=== PATIENT | female | born 1955 | race Caucasian/White ===

== ENCOUNTER 2022-11-02 07:00 | Emergency (ER) | payer MEDICARE, BC, SELFPAY ==
[2022-11-02] VITALS (13 sets, daily range): BP systolic 86–119; BP diastolic 44–74; PULSE 41–47; RESP 18; TEMP 35.8; O2SAT 95–99; BMI 24.7
--- NOTE | 2022-11-02 07:24 | ED_ITS ---
HPI - General Adult General Time Seen by Provider: 07:24 <Dale Ly MD - Last Filed: 11/02/22 07:46> Date Seen: 11/02/22 <Dale Ly MD - Last Filed: 11/02/22 07:46> Chief complaint: Back Injury/Pain <Dale Ly MD - Last Filed: 11/02/22 07:46> Stated complaint: Upper shoulder back pain/nausea <Dale Ly MD - Last Filed: 11/02/22 07:46> Time Seen by Provider: 11/02/22 07:13 <Dale Ly MD - Last Filed: 11/02/22 07:46> Source: patient, family and RN notes reviewed <Dale Ly MD - Last Filed: 11/02/22 07:46> Mode of arrival: ambulatory <Dale Ly MD - Last Filed: 11/02/22 07:46> Limitations: no limitations <Dale Ly MD - Last Filed: 11/02/22 07:46> History of Present Illness HPI narrative: 59-year-old female who comes in today with left back pain, lightheadedness, and nausea. This occurred about 6:00 a.m. and woke her up. She had pain in the left shoulder blade area with no radiation into the chest. This is accompanied by nausea but no vomiting. She had some shortness of breath and lightheadedness with this. She also notes that 3 days ago she had an episode of left arm pain the last for several minutes while driving and then went away. She denies abdominal pain, fever, cough. She is noted to be a little bradycardic says her heart rate is usually in the 40s. Review of recent echocardiogram shows heart rate in the 50s at that time <Dale Ly MD - Last Filed: 11/02/22 07:46> Related Data Home medications: Home Medications Medication Instructions Recorded Confirmed atorvastatin 20 mg tablet 20 mg PO HS 11/02/22 11/02/22 sertraline 25 mg tablet 12.5 mg PO DAILY 11/02/22 11/02/22 <Dale Ly MD - Last Filed: 11/02/22 07:46> Allergies/adverse reactions: Allergies Allergy/AdvReac Type Severity Reaction Status Date / Time Sulfa (Sulfonamide Allergy Severe Anaphylaxis Verified 11/02/22 07:11 Antibiotics) <Dale Ly MD - Last Filed: 11/02/22 07:46> [facility] Social History: Social History Smoking Status: Never smoker Do you use any of these nicotine containing products: None Second hand tobacco smoke exposure: No How often do you have a drink containing alcohol: monthly or less How often do you have six or more drinks on one occasion: Never AUDIT-C Alcohol total score: 1 Non-prescribed substance use: denies use service: No <Dale Ly MD - Last Filed: 11/02/22 07:46> Exam Narrative: Exam Narrative: General: Well-developed and well-nourished, no acute distress Head: Atraumatic and normocephalic Eyes: Pupils are equal reactive, extraocular motions intact, conjunctiva clear ENT: External nose and ears are normal, posterior pharynx without erythema or exudate Neck: No midline cervical tenderness, full spontaneous range of motion the neck, trachea midline, no adenopathy Heart: Bradycardic rate and rhythm no murmurs or thrills Lungs: Clear to auscultation bilaterally without wheezes or crackles Abdomen: Soft, nontender, nondistended with active bowel sounds Musculoskeletal: No tenderness, deformity, or edema Neurologic: Awake, alert, and oriented x3, no gross focal neurologic deficits, cranial nerves intact as tested Psych: Mood and affect are appropriate Skin: No rashes <Dale Ly MD - Last Filed: 11/02/22 07:46> Const: Vital Signs, click to edit/add: Vital Signs - 24 hr 11/02/22 07:05 11/02/22 07:11 11/02/22 07:12 Temperature 96.5 F L Pulse Rate 45 L 47 L Pulse Rate [Right] 46 L Respiratory Rate 18 Blood Pressure 118/66 Blood Pressure [Ri ght Upper Arm] 118/66 Pulse Oximetry 99 99 99 Oxygen Delivery Me thod Room Air 11/02/22 07:30 11/02/22 07:31 11/02/22 07:32 Temperature Pulse Rate 42 L 44 L 41 L Pulse Rate [Right] Respiratory Rate Blood Pressure 116/68 Blood Pressure [Ri ght Upper Arm] Pulse Oximetry 99 98 98 Oxygen Delivery Me thod 11/02/22 08:00 11/02/22 08:02 11/02/22 08:30 Temperature Pulse Rate 43 L 43 L 44 L Pulse Rate [Right] Respiratory Rate Blood Pressure 119/72 Blood Pressure [Ri ght Upper Arm] Pulse Oximetry 99 98 99 Oxygen Delivery Me thod 11/02/22 08:33 11/02/22 08:39 11/02/22 09:00 Temperature Pulse Rate 45 L 42 L 42 L Pulse Rate [Right] Respiratory Rate Blood Pressure 86/44 L 119/74 Blood Pressure [Ri ght Upper Arm] Pulse Oximetry 99 98 97 Oxygen Delivery Me thod 11/02/22 09:02 Temperature Pulse Rate 41 L Pulse Rate [Right] Respiratory Rate Blood Pressure 106/69 Blood Pressure [Ri ght Upper Arm] Pulse Oximetry 95 Oxygen Delivery Me thod <Dale Ly MD - Last Filed: 11/02/22 07:46> Vital Signs, click to edit/add: Vital Signs - 24 hr 11/02/22 07:05 11/02/22 07:11 11/02/22 07:12 Temperature 96.5 F L Pulse Rate 45 L 47 L Pulse Rate [Right] 46 L Respiratory Rate 18 Blood Pressure 118/66 Blood Pressure [Ri ght Upper Arm] 118/66 Pulse Oximetry 99 99 99 Oxygen Delivery Me thod Room Air 11/02/22 07:30 11/02/22 07:31 11/02/22 07:32 Temperature Pulse Rate 42 L 44 L 41 L Pulse Rate [Right] Respiratory Rate Blood Pressure 116/68 Blood Pressure [Ri ght Upper Arm] Pulse Oximetry 99 98 98 Oxygen Delivery Me thod 11/02/22 08:00 11/02/22 08:02 11/02/22 08:30 Temperature Pulse Rate 43 L 43 L 44 L Pulse Rate [Right] Respiratory Rate Blood Pressure 119/72 Blood Pressure [Ri ght Upper Arm] Pulse Oximetry 99 98 99 Oxygen Delivery Me thod 11/02/22 08:33 11/02/22 08:39 11/02/22 09:00 Temperature Pulse Rate 45 L 42 L 42 L Pulse Rate [Right] Respiratory Rate Blood Pressure 86/44 L 119/74 Blood Pressure [Ri ght Upper Arm] Pulse Oximetry 99 98 97 Oxygen Delivery Me thod 11/02/22 09:02 Temperature Pulse Rate 41 L Pulse Rate [Right] Respiratory Rate Blood Pressure 106/69 Blood Pressure [Ri ght Upper Arm] Pulse Oximetry 95 Oxygen Delivery Me thod <Smooth Alcocer MD - Last Filed: 11/02/22 09:54> Course Course Hospital Course: Patient seen and examined, prior records are reviewed. Patient presents today with atraumatic left shoulder pain, nausea, lightheadedness. On exam here, patient noted to be bradycardic but no other findings. Cannot reproduce symptoms and patient says pain is resolved. Concern for possible atypical acute coronary syndrome especially in setting of atraumatic scapula pain. Patient tells me she has been treated for this in the past, number of years ago and did physical therapy for this. <Dale Ly MD - Last Filed: 11/02/22 07:46> Reevaluation(s) Reevaluation #1: I reviewed with the patient that the initial troponin, D-dimer, EKG, chest x-ray, and blood tests were all within normal limits, she is feeling much better now. And has absolutely no pain, nausea vomiting. I do believe this 2nd set of troponin EKG would be important, she is low risk and I both feel that we could probably discharge her after this. Both her and her were comfortable with this plan. <Smooth Alcocer MD - Last Filed: 11/02/22 09:54> Time: 08:52 <Smooth Alcocer MD - Last Filed: 11/02/22 09:54> Reevaluation #2: I discussed with her 2nd troponin is 0 or his 2nd EKG is normal. I think that this is more likely musculoskeletal, she also does have mild bradycardia by EKG, she is otherwise asymptomatic in of she does become symptomatic I would encourage her to follow up primary care to check this. <Smooth Alcocer MD - Last Filed: 11/02/22 09:54> Time: 09:51 <Smooth Alcocer MD - Last Filed: 11/02/22 09:54> Vital Signs Vital signs: Initial Vital Signs Temperature 96.5 F L 11/02/22 07:05 Temperature Source Temporal Artery Scan 11/02/22 07:05 Pulse Rate 46 L 11/02/22 07:05 Respiratory Rate 18 03/07/23 07:05 Blood Pressure 118/66 11/02/22 07:05 Blood Pressure Mean 83 11/02/22 07:05 Blood Pressure Position Sitting 11/02/22 07:05 Pulse Oximetry 99 11/02/22 07:05 Oxygen Delivery Method 11/02/22 07:05 Vital Signs Temperature 96.5 F L 11/02/22 07:05 Pulse Rate 46 L 11/02/22 07:05 Respiratory Rate 18 11/02/22 07:05 Blood Pressure 118/66 11/02/22 07:05 Pulse Oximetry 99 11/02/22 07:05 Oxygen Delivery Method 11/02/22 07:05 Temperature 96.5 F L 11/02/22 07:05 Pulse Rate 41 L 11/02/22 09:02 Respiratory Rate 18 11/02/22 07:05 Blood Pressure 106/69 11/02/22 09:02 Pulse Oximetry 95 11/02/22 09:02 Oxygen Delivery Method 11/02/22 07:05 <Dale Ly MD - Last Filed: 11/02/22 07:46> Initial Vital Signs Temperature 96.5 F L 11/02/22 07:05 Temperature Source Temporal Artery Scan 11/02/22 07:05 Pulse Rate 46 L 11/02/22 07:05 Respiratory Rate 18 11/02/22 07:05 Blood Pressure 118/66 11/02/22 07:05 Blood Pressure Mean 83 11/02/22 07:05 Blood Pressure Position Sitting 11/02/22 07:05 Pulse Oximetry 99 11/02/22 07:05 Oxygen Delivery Method 11/02/22 07:05 Vital Signs Temperature 96.5 F L 11/02/22 07:05 Pulse Rate 46 L 11/02/22 07:05 Respiratory Rate 18 11/02/22 07:05 Blood Pressure 118/66 11/02/22 07:05 Pulse Oximetry 99 11/02/22 07:05 Oxygen Delivery Method 11/02/22 07:05 Temperature 96.5 F L 11/02/22 07:05 Pulse Rate 41 L 11/02/22 09:02 Respiratory Rate 18 11/02/22 07:05 Blood Pressure 106/69 11/02/22 09:02 Pulse Oximetry 95 11/02/22 09:02 Oxygen Delivery Method 11/02/22 07:05 <Smooth Alcocer MD - Last Filed: 11/02/22 09:54> Medical Decision Making MDM Narrative Medical decision making narrative: During the evaluation of this patient I considered multiple differential diagnosis is. The life-threatening differential diagnosis include coronary disease/CO, pulmonary embolism, pneumothorax, pneumonia, and aortic dissection. Other differential diagnosis included but were not limited to pericarditis, myocarditis, chest wall pain, GERD, esophageal rupture, rib fracture contusion, pleurisy, as well as other etiologies. Life-threatening differential diagnosis considered include: Cauda equina an epidural abscess, other differential diagnosis considered includes sprain, contusion, nerve root entrapment, radiculopathy, muscle spasm, urolithiasis, lumbar fracture, pyelonephritis, appendicitis, biliary colic, as well as other etiologies. The patient denies saddle anesthesia bowel or bladder incontinence or lower extremity weakness, recent weight loss, or history of malignancy. <Smooth Alcocer MD - Last Filed: 11/02/22 09:54> Medical Records Medical records reviewed: Yes I reviewed the patient's medical records <Smooth Alcocer MD - Last Filed: 11/02/22 09:54> Lab Data Lab results reviewed: Yes I reviewed the patient's lab results <Smooth Alcocer MD - Last Filed: 11/02/22 09:54> Labs: Lab Results 11/02/22 11/02/22 11/02/22 Range/Units 07:50 07:50 07:50 WBC 5.33 (4.50-11.00) K/uL RBC 4.27 (4.00-5.20) m/uL Hgb 13.0 (12.0-16.0) gm/dL Hct 41.0 (33.0-51.0) % MCV 96 (80-100) fL MCH 30 (26-34) pg MCHC 32 (32-36) gm/dL RDW Coeff of Jaylene 11.8 (11.5-15.5) % Plt Count 162 (140-440) K/uL Neut % (Auto) 64.8 (42.0-72.0) % Lymph % (Auto) 26.3 (20-44) % [place] % (Auto) 6.0 (0.0-11.0) % Eos % (Auto) 2.3 (0.0-7.0) % Baso % (Auto) 0.4 (0.0-3.0) % Neut # (Auto) 3.46 (1.7-7.0) K/uL Lymph # (Auto) 1.40 (0.90-2.90) K/uL [place] # (Auto) 0.30 (0.00-0.90) K/UL Eos # (Auto) 0.12 (0.00-0.50) K/uL Baso # (Auto) 0.02 (0.00-0.30) K/uL D-Dimer Quant (PE/DVT) (0.00-0.50) ug/ml Sodium 140 (135-149) mmol/L Potassium 4.4 (3.6-5.1) mmol/L Chloride 107 (96-114) mmol/L Carbon Dioxide 33 H (20-32) mmol/L BUN 17 (7-30) mg/dL Creatinine 0.7 (0.5-1.5) mg/dL Estimated Creat Clear 46.50 Estimated GFR 94 ml/min Glucose 99 (60-115) mg/dL Calcium 9.2 (8.4-10.6) mg/dL Total Bilirubin 0.7 (0.1-1.5) mg/dL Direct Bilirubin 0.1 (0.0-0.5) mg/dL AST 21 (12-35) U/L ALT 18 (4-35) U/L Alkaline Phosphatase 75 (40-150) U/L Total Protein 6.9 (6.0-8.3) g/dL Albumin 4.3 (3.3-5.0) g/dL Lipase 44 (23-300) U/L SARS-CoV-2 (PCR) (Negative) Influenza Type A (PCR) (Negative) Influenza Type B (PCR) (Negative) RSV (PCR) (Negative) POC Troponin I 0.00 L (0.01-0.04) ng/ml 11/02/22 11/02/22 11/02/22 Range/Units 07:50 07:50 09:30 WBC (4.50-11.00) K/uL RBC (4.00-5.20) m/uL Hgb (12.0-16.0) gm/dL Hct (33.0-51.0) % MCV (80-100) fL MCH (26-34) pg MCHC (32-36) gm/dL RDW Coeff of Jaylene (11.5-15.5) % Plt Count (140-440) K/uL Neut % (Auto) (42.0-72.0) % Lymph % (Auto) (20-44) % [place] % (Auto) (0.0-11.0) % Eos % (Auto) (0.0-7.0) % Baso % (Auto) (0.0-3.0) % Neut # (Auto) (1.7-7.0) K/uL Lymph # (Auto) (0.90-2.90) K/uL [place] # (Auto) (0.00-0.90) K/UL Eos # (Auto) (0.00-0.50) K/uL Baso # (Auto) (0.00-0.30) K/uL D-Dimer Quant (PE/DVT) < 0.27 (0.00-0.50) ug/ml Sodium (135-149) mmol/L Potassium (3.6-5.1) mmol/L Chloride (96-114) mmol/L Carbon Dioxide (20-32) mmol/L BUN (7-30) mg/dL Creatinine (0.5-1.5) mg/dL Estimated Creat Clear Estimated GFR ml/min Glucose (60-115) mg/dL Calcium (8.4-10.6) mg/dL Total Bilirubin (0.1-1.5) mg/dL Direct Bilirubin (0.0-0.5) mg/dL AST (12-35) U/L ALT (4-35) U/L Alkaline Phosphatase (40-150) U/L Total Protein (6.0-8.3) g/dL Albumin (3.3-5.0) g/dL Lipase (23-300) U/L SARS-CoV-2 (PCR) Negative SARS-CoV-2 (Negative) Influenza Type A (PCR) Negative PCR FLU A (Negative) Influenza Type B (PCR) Negative PCR FLU B (Negative) RSV (PCR) Negative PCR RSV (Negative) POC Troponin I 0.00 L (0.01-0.04) ng/ml <Dale Ly MD - Last Filed: 11/02/22 07:46> Lab Results 11/02/22 11/02/22 11/02/22 Range/Units 07:50 07:50 07:50 WBC 5.33 (4.50-11.00) K/uL RBC 4.27 (4.00-5.20) m/uL Hgb 13.0 (12.0-16.0) gm/dL Hct 41.0 (33.0-51.0) % MCV 96 (80-100) fL MCH 30 (26-34) pg MCHC 32 (32-36) gm/dL RDW Coeff of Jaylene 11.8 (11.5-15.5) % Plt Count 162 (140-440) K/uL Neut % (Auto) 64.8 (42.0-72.0) % Lymph % (Auto) 26.3 (20-44) % [place] % (Auto) 6.0 (0.0-11.0) % Eos % (Auto) 2.3 (0.0-7.0) % Baso % (Auto) 0.4 (0.0-3.0) % Neut # (Auto) 3.46 (1.7-7.0) K/uL Lymph # (Auto) 1.40 (0.90-2.90) K/uL [place] # (Auto) 0.30 (0.00-0.90) K/UL Eos # (Auto) 0.12 (0.00-0.50) K/uL Baso # (Auto) 0.02 (0.00-0.30) K/uL D-Dimer Quant (PE/DVT) (0.00-0.50) ug/ml Sodium 140 (135-149) mmol/L Potassium 4.4 (3.6-5.1) mmol/L Chloride 107 (96-114) mmol/L Carbon Dioxide 33 H (20-32) mmol/L BUN 17 (7-30) mg/dL Creatinine 0.7 (0.5-1.5) mg/dL Estimated Creat Clear 46.50 Estimated GFR 94 ml/min Glucose 99 (60-115) mg/dL Calcium 9.2 (8.4-10.6) mg/dL Total Bilirubin 0.7 (0.1-1.5) mg/dL Direct Bilirubin 0.1 (0.0-0.5) mg/dL AST 21 (12-35) U/L ALT 18 (4-35) U/L Alkaline Phosphatase 75 (40-150) U/L Total Protein 6.9 (6.0-8.3) g/dL Albumin 4.3 (3.3-5.0) g/dL Lipase 44 (23-300) U/L SARS-CoV-2 (PCR) (Negative) Influenza Type A (PCR) (Negative) Influenza Type B (PCR) (Negative) RSV (PCR) (Negative) POC Troponin I 0.00 L (0.01-0.04) ng/ml 11/02/22 11/02/22 11/02/22 Range/Units 07:50 07:50 09:30 WBC (4.50-11.00) K/uL RBC (4.00-5.20) m/uL Hgb (12.0-16.0) gm/dL Hct (33.0-51.0) % MCV (80-100) fL MCH (26-34) pg MCHC (32-36) gm/dL RDW Coeff of Jaylene (11.5-15.5) % Plt Count (140-440) K/uL Neut % (Auto) (42.0-72.0) % Lymph % (Auto) (20-44) % [place] % (Auto) (0.0-11.0) % Eos % (Auto) (0.0-7.0) % Baso % (Auto) (0.0-3.0) % Neut # (Auto) (1.7-7.0) K/uL Lymph # (Auto) (0.90-2.90) K/uL [place] # (Auto) (0.00-0.90) K/UL Eos # (Auto) (0.00-0.50) K/uL Baso # (Auto) (0.00-0.30) K/uL D-Dimer Quant (PE/DVT) < 0.27 (0.00-0.50) ug/ml Sodium (135-149) mmol/L Potassium (3.6-5.1) mmol/L Chloride (96-114) mmol/L Carbon Dioxide (20-32) mmol/L BUN (7-30) mg/dL Creatinine (0.5-1.5) mg/dL Estimated Creat Clear Estimated GFR ml/min Glucose (60-115) mg/dL Calcium (8.4-10.6) mg/dL Total Bilirubin (0.1-1.5) mg/dL Direct Bilirubin (0.0-0.5) mg/dL AST (12-35) U/L ALT (4-35) U/L Alkaline Phosphatase (40-150) U/L Total Protein (6.0-8.3) g/dL Albumin (3.3-5.0) g/dL Lipase (23-300) U/L SARS-CoV-2 (PCR) Negative SARS-CoV-2 (Negative) Influenza Type A (PCR) Negative PCR FLU A (Negative) Influenza Type B (PCR) Negative PCR FLU B (Negative) RSV (PCR) Negative PCR RSV (Negative) POC Troponin I 0.00 L (0.01-0.04) ng/ml <Smooth Alcocer MD - Last Filed: 11/02/22 09:54> Imaging Data Chest x-ray: Attestation: I have reviewed the pertinent imaging results. <Smooth Alcocer MD - Last Filed: 11/02/22 09:54> My impression: Chest x-ray showed no acute findings. <Smooth Alcocer MD - Last Filed: 11/02/22 09:54> Radiologist's impression: Patient: LOPEZ SHARMA Facility:?[facility] Patient ID:?[id number] Site Patient ID:?[id number]. Site :?[id number] Study:?XRay Chest 2 view-11/02/2022 7:59:54 AM Ordering Physician:?Aliyah Hunter Final Report: INDICATION: Left shoulder pain. TECHNIQUE: Chest 2 views. COMPARISON: None. FINDINGS: No focal consolidation, pleural effusion, or pneumothorax. Mild cardiomegaly. Normal pulmonary vascularity. Degenerative changes of the spine. IMPRESSION: 1. No acute cardiopulmonary findings. 2. Mild cardiomegaly. Dictated by Shannon Irving MD @ 11/02/2022 8:35:05 AM (Electronic Signature) <Smooth Alcocer MD - Last Filed: 11/02/22 09:54> ECG Data Attestation: I personally reviewed and interpreted this ECG as follows: <Dale Ly MD - Last Filed: 11/02/22 07:46> Prior ECG tracings: not available for review <Dale Ly MD - Last Filed: 11/02/22 07:46> Interpretation: Independently interpreted by me demonstrates rate 42, left axis deviation, no acute ST elevations or depressions, normal intervals, QTC 392, ND 164. No prior for comparison. <Dale Ly MD - Last Filed: 11/02/22 07:46> Independently interpreted by me demonstrates rate 42, left axis deviation, no acute ST elevations or depressions, normal intervals, QTC 392, ND 164. No prior for comparison. Second EKG shows mild sinus bradycardia, no acute changes when reviewed from the previous EKG. <Smooth Alcocer MD - Last Filed: 11/02/22 09:54> Discharge Plan Discharge Clinical Impression: Strain of left trapezius muscle, Left-sided thoracic back pain, Bradycardia by electrocardiogram <Dale Ly MD - Last Filed: 11/02/22 07:46> Patient Disposition: Home w/ Parent or Adult <Dale Ly MD - Last Filed: 11/02/22 07:46> Condition: Improved <Dale Ly MD - Last Filed: 11/02/22 07:46> Instructions: Thoracic Pain (ED) <Dale Ly MD - Last Filed: 11/02/22 07:46> Additional Instructions: Home rest use of ice I find that massage actually worsens these conditions as opposed to improving it. Tylenol ibuprofen, follow-up with primary care for PT. The other thing we did talk about is your heart rate is very low, mine is also v lam low in the focal 40s. EKGs were otherwise normal. If you are having problems with feeling lightheaded, I would encourage you to follow-up with primary care. <Dale Ly MD - Last Filed: 11/02/22 07:46> Activity Level: No Restrictions and Activity as Tolerated <Dale Ly MD - Last Filed: 11/02/22 07:46> No Restrictions and Activity as Tolerated <Smooth Alcocer MD - Last Filed: 11/02/22 09:54> Prescriptions: No Action atorvastatin 20 mg tablet 20 mg PO HS Label Comments: TAKE ONE TABLET BY MOUTH AT BEDTIME sertraline 25 mg tablet 12.5 mg PO DAILY Label Comments: Take 1 Tablet (25 mg) by mouth once daily. <Dale Ly MD - Last Filed: 11/02/22 07:46> Follow Up/Referrals: Shaista Bartholomew PA-C [Referring] - <Dale Ly MD - Last Filed: 11/02/22 07:46> Stand Alone Forms: [employer] Info Instructions <Dale Ly MD - Last Filed: 11/02/22 07:46>
--- NOTE | 2022-11-02 07:27 | CRLHL7_ITS ---
For Patients: As a result of the Cures Act, medical imaging exams and procedure reports are released immediately into your electronic medical record. You may view this report before your referring provider. If you have questions, please contact your health care provider. INDICATION: Left shoulder pain. TECHNIQUE: Chest 2 views. COMPARISON: None. FINDINGS: No focal consolidation, pleural effusion, or pneumothorax. Mild cardiomegaly. Normal pulmonary vascularity. Degenerative changes of the spine. IMPRESSION: 1. No acute cardiopulmonary findings. 2. Mild cardiomegaly. Dictated by Shannon Irving MD @ 11/02/2022 8:35:05 AM (Electronically Signed)
[2022-11-02] MEDS: ASPIRIN 81 MG TAB.CHEW 324 MG PO (07:34)
[2022-11-02 07:57] LABS: Basophils Absolute Auto 0.02 K/uL (0.00-0.30); Basophils Percent Auto 0.4 % (0.0-3.0); Eosinophils Absolute Auto 0.12 K/uL (0.00-0.50); Eosinophils Percent Auto 2.3 % (0.0-7.0); Immature Granulocytes Abs Auto 0.01 K/uL (0.00-0.30); Immature Granulocytes Pct Auto 0.2 %; Lymphocytes Percent Auto 26.3 % (20-44); Mean Corpuscular HGB Conc 32 gm/dL (32-36); Mean Corpuscular Hemoglobin 30 pg (26-34); Mean Corpuscular Volume 96 fL (80-100); Neutrophils Absolute Auto 3.46 K/uL (1.7-7.0); Neutrophils Percent Auto 64.8 % (42.0-72.0); Platelet Count* 162 K/uL (140-440); RDW Coefficient of Variation % 11.8 % (11.5-15.5); Red Blood Count 4.27 m/uL (4.00-5.20); White Blood Count* 5.33 K/uL (4.50-11.00)
[2022-11-02 08:04] LABS: Slide Review Reflex No
--- NOTE | 2022-11-02 08:06 | ED.NURSE ---
[employer] swab done
[2022-11-02 08:13] LABS: Albumin* 4.3 g/dL (3.3-5.0); Chloride* 107 mmol/L (96-114); Potassium* 4.4 mmol/L (3.6-5.1); Sodium* 140 mmol/L (135-149)
[2022-11-02 08:15] LABS: Carbon Dioxide* 33 mmol/L (20-32); Creatinine* 0.7 mg/dL (0.5-1.5); Estimated Glomerular Filt Rate 94 ml/min
[2022-11-02 08:16] LABS: Alkaline Phosphatase* 75 U/L (40-150); Aspartate Amino Transferase* 21 U/L (12-35); Bilirubin Direct* 0.1 mg/dL (0.0-0.5); Bilirubin Total* 0.7 mg/dL (0.1-1.5); Blood Urea Nitrogen* 17 mg/dL (7-30); Calcium* 9.2 mg/dL (8.4-10.6); Glucose* 99 mg/dL (60-115); Lipase* 44 U/L (23-300); Total Protein* 6.9 g/dL (6.0-8.3)
[2022-11-02 08:17] LABS: Alanine Aminotransferase* 18 U/L (4-35)
[2022-11-02 08:26] LABS: D Dimer Quantitative* < 0.27 ug/ml (0.00-0.50)
[2022-11-02 08:49] LABS: PCR FLU A Negative PCR FLU A (Negative); PCR FLU B Negative PCR FLU B (Negative); PCR RSV Negative PCR RSV (Negative)
[2022-11-02 08:53] LABS: SARS PCR* Negative SARS-CoV-2 (Negative)
== END 2022-11-02 10:06 | disposition home or self-care (01) ==
PROVIDERS: Family Medicine; Emergency Provider Family Medicine; PCP Internal Medicine
DX: R00.1 Bradycardia, unspecified (principal); S46.812A Strain of other muscles, fascia and tendons at shoulder and upper arm level, left arm, initial encounter; M54.6 Pain in thoracic spine
CPT/HCPCS: 36415; 71046; 80048; 80076; 83690; 84484; 85025; 85379; 87502; 87634; 87635; 93005; 99284; A9270

== ENCOUNTER 2022-12-01 11:15 | Outpatient (RCR) | payer MEDICARE, BC, SELFPAY | END 2023-03-17 23:59 | disposition home or self-care (01) | PROVIDERS: PCP Internal Medicine; Visit Provider Internal Medicine | DX: M54.9 Dorsalgia, unspecified (principal); Z51.89 Encounter for other specified aftercare | CPT/HCPCS: 97110; 97140; 97161 ==

== ENCOUNTER 2024-04-25 13:00 | Outpatient (RCR) | payer MEDICARE, BC, SELFPAY | END 2024-08-14 12:57 | disposition home or self-care (01) | PROVIDERS: PCP Internal Medicine; Visit Provider Family Medicine | DX: M54.50 Low back pain, unspecified (principal); M41.9 Scoliosis, unspecified; Z51.89 Encounter for other specified aftercare | CPT/HCPCS: 97110; 97140; 97161 ==

== ENCOUNTER 2025-05-09 11:00 | Outpatient (RCR) | payer MEDICARE, BC, SELFPAY | END 2025-07-01 16:42 | disposition home or self-care (01) | PROVIDERS: PCP Internal Medicine; Visit Provider Internal Medicine | DX: M62.830 Muscle spasm of back (principal); R29.3 Abnormal posture; M47.819 Spondylosis without myelopathy or radiculopathy, site unspecified; Z51.89 Encounter for other specified aftercare | CPT/HCPCS: 97110; 97140; 97161 ==